=== PATIENT | male | born 1970 ===

== ENCOUNTER 2018-02-20 11:14 | Day surgery (SDC) | payer OTHER, SELFPAY ==
[2018-02-19 12:01] VITALS: BMI 51.2
[2018-02-20] VITALS (9 sets, daily range): BP systolic 111–130; BP diastolic 70–89; PULSE 78–86; RESP 10–18; TEMP 36–37.1; O2SAT 90–98; BMI 51.2
[2018-02-20] MEDS: LACTATED RINGERS 1,000 ML 42 ML IV (13:24)
--- NOTE | 2018-02-20 15:16 | PM.PREOP ---
Pre-operative Note Interval Note Pre-op Check: Yes History & Physical Reviewed by Physician and Yes Exam Performed Changes: No
[2018-02-20] MEDS: MIDAZOLAM 2 MG/2 ML VIAL IV (15:40)
--- NOTE | 2018-02-20 16:04 | SUR.PREOP ---
Block start time []1544 . Monitoring initiated and maintained throughout procedure. Oxygen and medications given per anesthesiologist instructions. Patient remained stable throughout procedure, no adverse reactions noted. Block end time [1555].
[2018-02-20] MEDS: CEFAZOLIN VIAL 3 GM in SODIUM CHLORIDE 0.9% 100 ML 200 ML IV (16:05)
--- NOTE | 2018-02-20 16:38 | SUR.OPER ---
Lateral on padded OR bed with andersen bag positioner, head on pillow, gel axillary roll in place, bottom leg bent with gel pad under knee to foot, upper leg straight and supported with pillows. Operative arm secured in shoulder positioning suspension device. non-operative arm secured on padded arm board. Safety belt at hip, tape over blanket securing lower legs.
--- NOTE | 2018-02-20 17:53 | P.OP_ITS ---
Operative Date/Time/Diagnoses Date of procedure: 02/20/18 Time of procedure: 17:45 Pre-op diagnosis: Rotator cuff tear right shoulder Post-op diagnosis: other (Full thickness tear of the anterior supraspinatus tendon right shoulder) Procedure & Clinicians Procedure: Arthroscopic rotator cuff repair right shoulder with standard bursectomy and acromioplasty Same procedure as scheduled: Yes Indications: The patient presents today for rotator cuff repair of the right shoulder the shoulder was injured at work. MRI scan showed a full-thickness tear of the supraspinatus tendon. The nature of the procedure including the risks and benefits, alternatives, postoperative course and expected outcome were discussed and all questions answered. Consent was obtained. Operative site confirmed and marked. Surgeon: Vernon Cabrera Dining Room Attendant Cafeteria: Gabi Morton Anesthesia Type: General, Peripheral nerve block and Local Operative Notes Findings: Examination under anesthesia was unremarkable. Arthroscopic examination of the glenohumeral joint was unremarkable except for non retracted tearing of the super spinning this tendon anteriorly. The infraspinatus and subscapularis tendons appeared intact and normal. The biceps tendon was normal. The labrum was normal and stable. No damage to the articular surface. Evaluation of subacromial space more clearly revealed a non retracted tear of the anterior supraspinatus tendon the detached portion of the tendon about 12 mm anterior to posterior. There was also some delamination that extended into the infraspinatus tendon. A complete repair without significant tension was obtained as noted below. Standard bursectomy and acromioplasty was performed. Closure Type: primary Specimen(s): none sent Implants & Drains: Arthrex fiber tape sutures and swivel lock anchors x2 Applied: implant(s) Estimated Blood Loss (mL): 5 Blood products transfused: none Procedure in detail: The patient was taken the operative suite and placed under general anesthesia with a scalene nerve block and given prophylactic antibodies prior to surgery. The patient was then positioned in the lateral decubitus position on a beanbag and with an axillary roll. The arm was suspended with 10 pounds of weight. The acromion and coracoid as well as the expected portal sites were all marked. The shoulder was then injected with 20 mL of 1% lidocaine with epinephrine. The arm was then prepped and draped in usual sterile fashion. The joint was then filled with 20 mL of saline through the proposed posterior portal site. The posterior portal was then established and the scope placed bluntly into the glenohumeral joint. An anterior portal was then established from an outside in technique with a spinal needle. The glenohumeral joint was then inspected (see findings above). The scope was then switched to the subacromial space. A standard bursectomy and anterior/lateral chondroplasty was performed with a shaver and bur. The subacromial space was well decompressed. The rotator cuff tear was best seen from the subacromial space. About 12 mm of the anterior supraspinatus was torn from the tuberosity but with no significant retraction. The rotator cuff tendon extending into the infraspinatus also had some delamination. The overall tendon quality however appeared good. Two Arthrex fiber tape sutures were placed in inverted mattress suture incorporating the area of delamination. Each suture was then fixed to the tuberosity with an Arthrex swivel lock anchor. A nice complete repair without significant tension was obtained. The arthroscopy was then completed and the shoulder drained. The portal sites were closed with interrupted 3-0 nylon suture. Subacromial space was filled with 20 mL of 0.5% ropivacaine and 4 of morphine. Sterile gauze dressings were then applied. The shoulder was placed into a sling. The patient tolerated the procedure well and was returned recovery room in good condition. Complications: none Condition: stable Disposition: same day surgery Plan for aftercare: No active shoulder range of motion for 6 weeks. Daily pendulum exercises. Daily elbow, wrist and hand range of motion. Follow-up in 2 weeks.
[2018-02-20] MEDS: ROPIVACAINE 0.5% PF 30ML 20 ML INJ (17:59)
== END 2018-02-20 19:00 | disposition home or self-care (01) ==
PROVIDERS: Visit Provider Orthopaedic Surgery
PROC: (CPT 29827; principal; 2018-02-20 14:30)
DX: M75.121 Complete rotator cuff tear or rupture of right shoulder, not specified as traumatic (principal); M19.011 Primary osteoarthritis, right shoulder; I10 Essential (primary) hypertension; G89.18 Other acute postprocedural pain; E11.9 Type 2 diabetes mellitus without complications; Z79.84 Long term (current) use of oral hypoglycemic drugs; X50.3XXA Overexertion from repetitive movements, initial encounter; Y92.63 Factory as the place of occurrence of the external cause
CPT/HCPCS: 29827; 29826; 64415; J0690; J2250; J2405; J2704; J2795; J3010